=== PATIENT | male | born 1945 | race Caucasian/White ===

== ENCOUNTER → 2016-11-11 | Outpatient (CLI) | payer OTHER, BC ==
[2016-11-11 08:24] LABS: BASOPHILS # (AUTO) 0.05 10*3/UL; BASOPHILS % (AUTO) 0.6 % (0-1); EOSINOPHILS % (AUTO) 2.6 % (0-8); HEMATOCRIT 48.1 % (42.0-52.0); HEMOGLOBIN 16.5 g/dL (14.0-18.0); IMM GRAN % (AUTO) 0.2 % (0-5); IMM GRAN# (AUTO) 0.02 10*3/UL; LYMPHOCYTES # (AUTO) 2.48 10*3/uL; LYMPHOCYTES % (AUTO) 29.5 % (10-50); MEAN CORPUSCULAR HEMOGLOBIN 30.9 PG (27-31); MEAN CORPUSCULAR HGB CONC 34.3 g/dL (33-37); MEAN PLATELET VOLUME 8.6 FL (7.4-12.2); MONOCYTES # (AUTO) 0.71 10*3/UL (0.3-0.8); MONOCYTES % (AUTO) 8.4 % (5-15); NEUTROPHILS # (AUTO) 4.94 10*3/UL; NEUTROPHILS % (AUTO) 58.7 % (50-80); RDW COEFFICIENT OF VARIATION 13.8 % (11.5-14.5); RED BLOOD COUNT 5.34 10^6/uL (4.70-6.10); WHITE BLOOD COUNT 8.42 10^3/uL (4.8-10.8)
[2016-11-11 08:34] LABS: PLATELET MORPHOLOGY COMMENT NORMAL MORPHOLOGY (NORM)
[2016-11-11 08:42] LABS: HEMOGLOBIN A1C 6.16 % (4.2-6.0); MEAN BLOOD GLUCOSE (CALC) 119.128 mg/dL
[2016-11-11 08:44] LABS: ASPARTATE AMINO TRANSFERASE 35 IU/L (21-57); BILIRUBIN,TOTAL 1.1 mg/dL (0.3-1.2); BLOOD UREA NITROGEN 14 mg/dL (7-22); CALCIUM 9.3 mg/dL (8.7-10.7); CHLORIDE 99 meq/L (98-112); EST GLOMERULAR FILTRATION > 60 (>60 ml/min/1.73m(2)); GLUCOSE 131 mg/dL (78-110); POTASSIUM 4.2 meq/L (3.8-5.2); SODIUM 139 meq/L (135-145); URIC ACID 4.6 mg/dl (3.8-8.5)
== END ==
LOC: LAB 08:11
PROVIDERS: ATTEND Internal Medicine
DX: E11.9 Type 2 diabetes mellitus without complications (principal); G47.33 Obstructive sleep apnea (adult) (pediatric); E79.0 Hyperuricemia without signs of inflammatory arthritis and tophaceous disease; I10 Essential (primary) hypertension; E66.9 Obesity, unspecified; Z12.5 Encounter for screening for malignant neoplasm of prostate
CPT/HCPCS: 36415; 80053; 80061; 83036; 84443; 84550; 85025; G0103

== ENCOUNTER → 2016-11-14 | Outpatient (CLI) | payer OTHER, BC | LOC: MMPC 11:11 | PROVIDERS: ATTEND Internal Medicine | DX: R73.09 Other abnormal glucose (principal); E66.9 Obesity, unspecified; R97.20 Elevated prostate specific antigen [PSA]; E11.9 Type 2 diabetes mellitus without complications; Z23 Encounter for immunization; R05 Cough | CPT/HCPCS: 99214; G0463; 90670 ==

== ENCOUNTER → 2017-05-12 | Outpatient (CLI) | payer OTHER, BC ==
[2017-05-12 11:13] LABS: HEMOGLOBIN A1C 6.31 % (4.2-6.0)
[2017-05-12 11:52] LABS: CREATININE, URINE 31.8 MG/DL (15-500)
== END ==
LOC: LAB 10:42
PROVIDERS: ATTEND Internal Medicine
DX: E11.9 Type 2 diabetes mellitus without complications (principal); R97.20 Elevated prostate specific antigen [PSA]; Z12.5 Encounter for screening for malignant neoplasm of prostate
CPT/HCPCS: 36415; 82043; 83036; G0103